=== PATIENT | female | born 1960 | race Hispanic/Latino ===

== ENCOUNTER → 2018-09-25 | Day surgery (SDC) | payer BC ==
--- NOTE | 2018-09-19 11:12 | Diagnostic Imaging Report ---
EXAMINATION: CHEST 2 VIEWS INDICATION: Pre-operative COMPARISON: None FINDINGS: LINES/TUBES:None LUNGS:The lungs are well-inflated. No focal consolidation or pulmonary edema. PLEURA:No pleural effusion or pneumothorax. MEDIASTINUM:The cardiomediastinal silhouette appears normal in size and shape. BONES/SOFT TISSUES:No acute osseous injury. ABDOMEN:No free air under the diaphragm. IMPRESSION: No focal pneumonia or pulmonary edema. Signed by: Joseline Youssef MD on 09/19/2018 11:09 AM
[2018-09-19 11:38] LABS: BASOPHILS % 0.6 % (0.0-1.0); EOSINOPHILS # (AUTO) 0.1 (0.0-0.4); EOSINOPHILS % 1.6 % (0.0-6.0); HEMATOCRIT 39.7 % (34.2-44.1); HEMOGLOBIN 12.3 g/dL (12.0-16.0); LYMPHOCYTES # (AUTO) 2.2 (1.0-3.2); LYMPHOCYTES % 33.8 % (18.0-39.1); MEAN CORPUSCULAR VOLUME 90.4 fL (81-99); MONOCYTES # (AUTO) 0.5 (0.2-0.8); MONOCYTES % 7.9 % (4.4-11.3); NEUTROPHILS # (AUTO) 3.6 (2.1-6.9); NEUTROPHILS % 55.8 % (38.7-80.0); PLATELET COUNT 345 x10e3/uL (140-360); RED BLOOD COUNT 4.39 x10e6/uL (3.6-5.1); RED CELL DISTRIBUTION WIDTH 14.1 % (11.7-14.4)
[2018-09-19 11:58] LABS: ANION GAP 13.1 mmol/L (8-16); BLOOD UREA NITROGEN 16 mg/dL (7-26); BUN/CREATININE RATIO 23 (6-25); CARBON DIOXIDE 24 mmol/L (22-29); CHLORIDE 107 mmol/L (98-107); CREATININE, SERUM 0.71 mg/dL (0.57-1.11); EST GLOMERULAR FILTRATION RATE > 60 ML/MIN (60-); GLUCOSE 108 mg/dL (74-118); POTASSIUM 4.1 mmol/L (3.5-5.1); SODIUM 140 mmol/L (136-145)
[~2018-09-25] MED LIST: ACETAMINOPHEN 1000 MG/100 ML 100 ML IV ONE; BETAMETHASONE DISODIUM PHOS 6 MG/ML VIAL ONE; BUPIVACAINE HCL 0.5% INJ 30 ML VIAL INJ ONE; CEFAZOLIN SOD 1 GM/NS 50ML 50 ML IV ONE; DEXAMETHASONE SOD PHOS INJ 4 MG/ML VIAL ONE; DICLOFENAC SODIUM TOP; FENTANYL CITRATE/PF 100MCG/2 ML INJ ONE; LIDOCAINE HCL 1% LOCAL INJ 20 ML VIAL ONE; LIDOCAINE HCL 2% LOCAL INJ 5 ML SDV VIAL INJ ONE; MIDAZOLAM HCL 2 MG/2 ML VIAL ONE; MUPIROCIN 2% OINT 22 GM TUBE ONE; NAPROXEN PO; ONDANSETRON HCL INJ 2MG/ML 2ML 2 MG/ML VIAL ONE; PROPOFOL IV EMULSION 10 MG/ML 20 ML VIAL ONE; SEVOFLURANE INHAL SOLN 250 ML PEN BTL ONE
--- OUTSIDE RECORDS SUMMARY | 2018-09-25 05:38 | XMS REPORT ---
Author Author [facility] [place] Address Unknown Phone Unavailable Care Team Providers Care Automation Controls Specialist Name Role Phone MELISSA LUA Unavailable Unavailable Problems This patient has no known problems. Allergies, Adverse Reactions, Alerts This patient has no known allergies or adverse reactions. Medications This patient has no known medications. Results Test Description Test Time Test Comments Text Results Atomic Results Result Comments CHEST 2 VIEWS 2018-09-19 11:08:00 [place] [id number] Patient Name: DUARTE MITCHELL MR #: [id number] : 1960 Age/Sex: 58/F Req #: [id number] Adm Physician: Ordered by: MELISSA LUA DPM Report #: [id number] Location: OR Room/Bed: Procedure: [id number] DX/CHEST 2 VIEWS Exam Date: 09/19/18 Exam Time: 1025 REPORT STATUS: Signed EXAMINATION: CHEST 2 VIEWS INDICATION: Pre-operative COMPARISON: None FINDINGS: LINES/TUBES:None LUNGS:The lungs are well-inflated. No focal consolidation or pulmonary edema. PLEURA:No pleural effusion or pneumothorax. MEDIASTINUM:The cardiomediastinal silhouette appears normal in size and shape. BONES/SOFT TISSUES:No acute osseous injury. ABDOMEN:No free air under the diaphragm. IMPRESSION: No focal pneumonia or pulmonary edema. Signed by: Brock Phelan MD on 09/19/2018 11:09 AM Dictated By: RBOCK PHELAN MD 08 Transcribed By: REGI MANE on 09/19/181108 COPY TO: MELISSA LUA DPM
--- NOTE | 2018-09-25 09:53 | Operative Report ---
DATE OF PROCEDURE: 09/25/2018 SURGEON: Mukund Bryant DPM PREOPERATIVE DIAGNOSES: 1. Painful hallux valgus deformity, right foot. 2. Painful contracted hammertoe, 5th digit, right foot. 3. Painful tailor's bunion, right foot. 4. Painful plantar fasciitis with heel spur syndrome, right foot. POSTOPERATIVE DIAGNOSIS: Confirmed. OPERATIVE PROCEDURES: 1. Isaac bunionectomy screw fixation, right foot. 2. Arthroplasty, 5th digit with K-wire fixation. 3. Tailor's bunionectomy, right foot. 4. Resection of plantar calcaneal heel spur, right foot. 5. Intraoperative use of fluoroscopy. 6. Trigger point shot of cortisone. 7. Application of posterior splint. ANESTHESIA: General. HEMOSTASIS: Pneumatic thigh tourniquet at 350 mmHg. PROCEDURE IN DETAIL: The patient was taken into the operating room, placed on the operating room table in a supine position. Following induction of general anesthesia by the anesthesiologist, Webril wraps were placed on the patient's right thigh followed by application of right thigh tourniquet. The right lower extremity was then prepped and draped in the usual aseptic manner. Following procedures were then performed. Procedure #1: Isaac bunionectomy with screw fixation, right foot attention was directed to the dorsal medical aspect of the 1st MPJ, where a 6 cm linear incision was performed. Incision was deepened down to the joint capsule. Longitudinal capsulotomy was then performed, exposing the exostosis of the 1st metatarsal head via the use of an oscillating saw, the exostosis was excised from the operation site in toto. A V-osteotomy was then performed from medial to lateral, capital fragment was then transpositioned laterally upon adequate surgical and anatomical reduction utilizing proper AO technique, a 2.0 16 mm cortical screw in conjunction with a buried 0.045 K-wire was used to achieve stability of osteotomy site. All redundant bone medially was excised via the use of an oscillating saw and rotating bur procedure. Procedure #2: Arthroplasty, 5th digit, right foot. Attention was directed to the dorsal aspect of the 5th toe right foot, where a 3 cm linear incision was performed. Incision was deepened down to the joint capsule. Transverse capsulotomy was performed exposing the head of the proximal phalanx. Using an oscillating saw, head of the proximal phalanx was excised from the operation site in toto. 5th toes was still noted to be contracted, so a 0.045 K-wire was introduced up to metatarsophalangeal joint to achieve proper anatomical reduction. Procedure #3: Tailor's bunionectomy, right foot. Attention was directed to the dorsal lateral aspect of her 5th metatarsophalangeal joint, where a 3 to 4 cm linear incision was performed, incision deepened down to the joint capsule, longitudinal capsulotomy was then performed, exposing the dorsal lateral exostosis of the 5th metatarsal head. Using oscillating saw and rotating bur, dorsal lateral exostosis was excised from the operation site in toto. All rough and bony edges were rasped smooth. Procedure #4: Resection of plantar calcaneal spur, right foot. Attention was then directed to the medial aspect of the right heel, where a 4 to 5 cm linear incision was performed. Incision was deepened down to the plantar fascia level. The medial one-half of the plantar fascia was resected from its insertion site, exposing the plantar calcaneal spur; via the use of a reciprocating saw, the plantar calcaneal spur was rasped smooth and no bony contusion was felt to the medial aspect of the right calcaneus. Procedure #5: Intraoperative use of fluoroscopy was then used to make sure proper alignment fixation was achieved with adequate resection of spur, seems that the little spur left was a lateral calcaneal spur. All areas were then copiously flushed with sterile antibiotic solution and suctioned and closure was then obtained utilizing 3-0 Vicryl, 4-0 Vicryl, and 4-0 nylon for capsule, subcutaneous tissue, and skin respectively after inserting a 7 mm TLS drain to the heel area to prevent a hematoma formation. Procedure #6: Trigger point shot of cortisone was then given to the 1st and 4th interspace of the right foot; then, approximately 15 mL of 0.5% plain Marcaine plus 10 mL of 1% Xylocaine plain were used to achieve local anesthesia of above-mentioned surgical area. Sterile dressing was applied. Upon release of the thigh tourniquet, blood hyperemia was noted immediate to all digits of the patient's right foot. Procedure #7: Application of posterior splint. A properly placed posterior splint was then applied keeping the foot at 90 degrees with respect to the leg to try and prevent any type of postop complications. The patient was then transferred from the OR to recovery room with vital signs stable and neurovascular status intact. No intraoperative complications were encountered. Blood loss from the surgery was minimal. The patient to remain nonweightbearing with the aid of crutches, keep her foot elevated and is to apply an ice pack to the ankle joint area. MARIZA Garcia/LINDA /[id number]
--- NOTE | 2018-09-25 10:27 | Diagnostic Imaging Report ---
EXAMINATION: FOOT RIGHT AP LAT INDICATION: Postoperative COMPARISON: None FINDINGS: AP and lateral postoperative radiographs of the right foot demonstrate K wire fixation of the fifth IP joint in near-anatomic alignment. A screw and pin traversing the shaft of the great toe metatarsal osteotomy. Surgical drain overlies the plantar soft tissues. Overlying gauze material obscures fine bony detail. No acute fracture. IMPRESSION: Postoperative changes as above. Signed by: Joseline Youssef MD on 09/25/2018 10:24 AM
[2018-09-25 11:00] VITALS: BP 141/77
== END | disposition home or self-care (01) ==
LOC: OR 05:35
PROVIDERS: ATTEND Podiatrist Foot Surgery
DX: M20.11 Hallux valgus (acquired), right foot (principal); M20.41 Other hammer toe(s) (acquired), right foot; M21.621 Bunionette of right foot; M77.31 Calcaneal spur, right foot; K21.9 Gastro-esophageal reflux disease without esophagitis; F41.9 Anxiety disorder, unspecified; Z01.810 Encounter for preprocedural cardiovascular examination; Z01.812 Encounter for preprocedural laboratory examination; Z01.818 Encounter for other preprocedural examination
CPT/HCPCS: 28110; 28119; 28285; 28296; 36415; 71046; 73620; 80048; 85025; 93005; C1713; J0131; J0690; J0720; J1100; J2001 ×2; J2250; J2405; J2704; J3010